=== PATIENT | female | born 1960 | race Caucasian/White ===

== ENCOUNTER 2018-12-21 12:04 | Emergency (ER) | payer MEDICARE, OTHER ==
[~2018-12-21] VITALS: Ht 157.5 cm; Wt 87.4 kg
[~2018-12-21 12:04] MED LIST: ABAC1TAB9 PO; ASPI325T32 PO; BENA20TA4 PO; HYDR-3498 PO; ISEN400 PO; SENN-25 PO
[2018-12-21 12:17] VITALS: Ht 157.5 cm; Wt 87.4 kg
--- NOTE | 2018-12-21 12:48 | ERD ---
ER Documentation Chief Complaint Chief Complaint CHESTWALL PAIN X2 DAYS, WORSENS WITH COUGHING HPI This is a 58-year-old woman complaining of anterior chest wall pain constant x5 days. She states pain precipitated by coughing but even without coughing she has a constant daily pain. The chest pain is nonradiating and nonexertional, she denies shortness of breath or wheezing, no vomiting or diarrhea, no weight loss, no headache or blurry vision. ROS All systems reviewed and are negative except as per history of present illness. Medications Home Meds Active Scripts Naproxen* (Naprosyn*) 500 Mg Tablet, 500 MG PO BID PRN for PAIN AND/OR INFL AMMATION, #30 TAB Prov:BERTIN ROUSSEAU MD 12/21/18 Reported Medications Darunavir/Cobicistat (Prezcobix 800 mg-150 mg Tablet) 1 Each Tablet, 1 EACH PO DAILY, TAB 12/21/18 Benazepril Hcl* (Benazepril Hcl*) 20 Mg Tablet, 20 MG PO DAILY, #30 TAB 12/21/18 Discontinued Reported Medications Raltegravir Potassium* (Isentress*) 400 Mg Tablet, 400 MG PO DAILY, TAB 2 TABS 09/09/14 Abacavir/Lamivudine* (Epzicom*) 1 Tab Tablet, 1 TAB PO DAILY, TAB 09/09/14 Benazepril Hcl* (Benazepril Hcl*) 20 Mg Tablet, 20 MG PO DAILY, TAB 09/09/14 Discontinued Scripts Aspirin* (Aspirin* EC) 325 Mg Tab, 325 MG PO BID, #30 TAB Prov:ADONIS CONKLIN NP 09/11/14 Sennosides/Docusate Sodium (Senna-Time S Tablet) 1 Tab Tab, 1 TAB PO BID for 14 Days Prov:ADONIS CONKLIN NP 09/11/14 Hydrocodone Bit/Acetaminophen (Anexsia 5-325 Mg Tablet) 1 Tab Tab, 1 TAB PO Q4H PRN for PAIN LEVEL 1-3 for 14 Days Prov:ADONIS CONKLIN NP 09/11/14 Allergies Allergies: Coded Allergies: No Known Allergy (Unverified , 12/21/18) PMhx/Soc History of osteoarthritis status post left total knee replacement, hypertension, HIV History of Surgery: No Anesthesia Reaction: No Hx Neurological Disorder: No Hx Respiratory Disorders: No Hx Cardiac Disorders: Yes (htn) Hx Psychiatric Problems: No Hx Miscellaneous Medical Probl: Yes (OA) Hx Alcohol Use: No Hx Substance Use: No Hx Tobacco Use: No Physical Exam Vitals Vital Signs Date Temp Pulse Resp B/P (MAP) Pulse Ox O2 O2 Flow FiO2 Time Delivery Rate 12/21/18 97.3 71 20 151/93 95 12:17 (112) Physical Exam GENERAL: Well-developed, well-nourished, well-hydrated, in no apparent distress, looks nontoxic in appearance HEENT: Moist mucous membranes, pink conjunctiva, no cervical spine tenderness or step-off deformities, no goiter, no jaundice or icterus, extraocular movements intact without pain. No submandibular induration, and no pharyngeal erythema NEURO: Alert and oriented 3, cranial nerves II through XII intact bilaterally, pupils equal round reactive to light, no focal deficits or facial asymmetry, sensation intact distally Strength 5/5 in upper and lower extremities bilaterally CARDIAC: Regular rate and rhythm, no murmurs rubs or gallops LUNGS: Clear bilaterally no wheezing crackles or stridor ABDOMEN: Soft nontender, no guarding, no rigidity, no rebound, no psoas sign no obturator sign. Normoactive bowel sounds SKIN: Warm and dry to touch, no abrasions, contusions, or hematomas, no lacerations, no ecchymosis, no target lesions, and without ulcers EXTREMITIES: No clubbing cyanosis or edema, calves are bilaterally symmetrical, no Homans sign, no popliteal cord sign. Distal pulses equal and bilateral PSYCH: Normal affect without agitation or irritability Results 24 hrs Laboratory Tests Test 12/21/18 13:16 Troponin I < 0.012 ng/ml Current Medications Medications Dose Sig/Vance Start Time Status Last (Trade) Ordered Route PRN Stop Time Admin Dose Reason Admin Ketorolac 30 mg ONCE STAT 12/21/18 DC 12/21/18 Tromethamine IM 12:59 13:26 (Toradol) 12/21/18 13:07 Procedures/MDM IV line was established patient was placed on vehicle monitor technician rhythm strip revealed a sinus rhythm at about 70 bpm with upright P and T waves. Patient was afebrile EKG performed, read by me revealed a normal sinus rhythm at 68 bpm, normal axis, narrow QRS complex, no concerning ST elevations or depressions noted Troponin was negative. I administered Toradol 15 mg IV x1 for pain control. 1 view chest x-ray performed, read by me revealed atelectatic changes bilaterally, no acute infiltrates, no pneumothorax. Differential diagnoses considered, included but not limited to acute coronary syndrome, pulmonary embolism, aortic dissection, abdominal aortic aneurysm, sepsis, stroke, meningitis, encephalitis, pneumonia, appendicitis, cholecystitis, bowel obstruction, pyelonephritis, nephrolithiasis, cystitis, as well as metabolic, hematologic, and electrolyte abnormalities. As well as abscess, cellulitis, fractures, and dislocations. Patient feels much better at this time, and vital signs are normal, symptoms have improved. I did give strict instructions to return to the ED if symptoms continue or worsen, patient will otherwise follow-up with primary care physician. Patient understood instructions and agreed to plan. Disclaimer: Inadvertent spelling and grammatical errors are likely due to EHR/dictation software use and do not reflect on the overall quality of patient care. Also, please note that the electronic time recorded on this note does not necessarily reflect the actual time of the patient encounter. Departure Diagnosis: Primary Impression: Chest wall pain Condition: BERTIN Burns MD December 21, 2018 12:48
[2018-12-21] MEDS ORDERED: KETOROLAC 30 MG INJ IM STA (12:59)
[2018-12-21] MEDS ORDERED: BENA20TA4 PO (13:31)
[2018-12-21] MEDS ORDERED: DARU1TAB PO (13:33)
[2018-12-21] MEDS ORDERED: NAPR-985 PO (14:19)
[2018-12-21 14:30] VITALS: BP 138/77; PULSE 61; RESP 20
== END 2018-12-21 14:32 | disposition home or self-care (01) ==
LOC: E/R 12:04
DX: R07.89 Other chest pain (principal); I10 Essential (primary) hypertension
CPT/HCPCS: 36415; 71045; 84484; 93005; 96372; 99284; J1885